=== PATIENT | female | born 1985 | race Caucasian/White ===

== ENCOUNTER 2016-10-17 17:16 | Emergency (ER) | payer OTHER ==
[2016-10-17] MEDS ORDERED: IBUPROFEN 600 MG TABLET ONE (19:34)
[2016-10-17] MEDS ORDERED: HYDROCODONE/ACETAMINOPHEN 5/325MG TABLET ONE (19:34)
[2016-10-17] MEDS ORDERED: ACETAMINOPHEN 500 MG TABLET ONE (19:34)
== END 2016-10-17 19:39 | disposition home or self-care (01) ==
LOC: ED 17:16
DX: H60.93 Unspecified otitis externa, bilateral (principal); G35 Multiple sclerosis; E05.90 Thyrotoxicosis, unspecified without thyrotoxic crisis or storm
CPT/HCPCS: 99283 ×2; A9270 ×3